=== PATIENT | male | born 1965 | race Caucasian/White ===

== ENCOUNTER → 2017-03-21 07:47 | Day surgery (SDC) | payer BC ==
--- NOTE | 2017-03-08 08:38 | HP ---
ADMISSION HISTORY AND PHYSICAL: DATE OF ADMISSION: 03/21/17 ATTENDING SURGEON: Julio Snyder MD (dictated by LISA Mendes) CHIEF COMPLAINT: Left inguinal hernia. HISTORY OF PRESENT ILLNESS: This is a generally healthy 51-year-old male who states that he has had left inguinal hernia for at least the past 10 years. He initially was completely asymptomatic. However, in recent months, he has noted both increased size of the hernia as well as discomfort both in the groin and in the left testicle, particularly related to increased activity and/or episodes of constipation. He denies anything to suggest incarceration or strangulation. He has had nocturia x1 to 2 nightly, but no recent changes. He did undergo open repair of a right inguinal hernia as well as of undescended testicle as a child. He wondered whether there maybe some recurrence on the right side based on some mild discomfort. He was seen in the office by Dr. Snyder on 02/06/17, at which time exam confirmed the presence of a reducible left inguinal hernia, but no apparent recurrent hernia noted on the right. Dr. Snyder discussed with him the indications for repair, the risks, benefits, and alternatives including the option of no treatment. The patient understands the expected perioperative course and would like to proceed as scheduled with open repair of left inguinal hernia with mesh. PAST MEDICAL HISTORY: Unremarkable for any chronic or active medical problems. PAST SURGICAL HISTORY: His only previous surgeries are the right inguinal herniorrhaphy and undescended testicle as a child, dental extractions, and vasectomy. CURRENT MEDICATIONS: None. ALLERGIES: Drug allergies, none. FAMILY HISTORY: Negative for anesthesia problems, bleeding, or clotting disorders. SOCIAL HISTORY: The patient is . 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 He denies use of tobacco. He drinks approximately 1 drink per week. REVIEW OF SYSTEMS: General: No recent constitutional symptoms or acute illnesses. Cardiovascular: No chest pain, palpitations, history of hypertension , IN, or heart murmur. Respiratory: No history of asthma, chronic cough, or shortness of breath. GI: No problems reported. I did not ask him about screening for colorectal cancer, but no lower GI symptoms reported. : No additions to the above. Endocrine: No diabetes or thyroid dysfunction. PHYSICAL EXAMINATION GENERAL: A well-nourished, well-developed male, in no acute distress. VITAL SIGNS: Height 71 inches, weight 175 pounds. Blood pressure 112/64, pulse 72, and respirations 16. HEENT: Pupils equal, round, and reactive. EOMs intact. No conjunctival pallor. Oropharynx, teeth in good repair. No intraoral lesions. NECK: No lymphadenopathy, thyromegaly, or masses. LUNGS: Clear to auscultation. No rales or wheezes. HEART: Regular rate and rhythm. No murmur noted. ABDOMEN: Soft, nontender to palpation. No palpable masses or organomegaly with the exception of the aforementioned left groin bulge consistent with left inguinal hernia. EXTREMITIES: No edema. GENITALIA EXAM: Not repeated. RECTAL: Not done. BACK: No spinous process or CVA tenderness. NEUROLOGIC: Grossly intact. SKIN: Warm and dry. No suspicious rashes or lesions. IMPRESSION: Left inguinal hernia. PLAN: Open repair of left inguinal hernia with mesh. LISA KWON CC: Stevan Arcos MD; Family Medicine * [id number]/[facility] #: [id number] [facility] SYSTEMJen[facility]
[~2017-03-21 07:47] MED LIST: Atracurium* 10 MG/ML 10 ML VIAL ONE; Buffered Lidocaine 1% SYRIN* 3 ML/SYR SYRINGE INTRADERM ONE; DiMENhydriNATE IV* 50 MG/ML VIAL IV PUSH PRN; Lidocaine 2% PF * 5 ML VIAL ONE; Midazolam* 1 MG/ML 5 ML VIAL (5 MG) ONE; Ondansetron INJ* 2 MG/ML VIAL IV PRN; Ondansetron INJ* 2 MG/ML VIAL ONE; Propofol* 10 MG/ML 20 ML BTL IV PUSH ONE; Succinylcholine* 20 MG/ML 10 ML VIAL ONE; ceFAZolin 2 GM PREMIX(*) 2 GM/50 ML BAG IVPB ONE; celeCOXIB CAP* 100 MG ONE; celeCOXIB CAP* 200 MG PO ONE; fentaNYL* 50 MCG/ML 2 ML VIAL (100 MCG VIAL) IV PRN; fentaNYL* 50 MCG/ML 2 ML VIAL (100 MCG VIAL) ONE
--- NOTE | 2017-03-21 12:38 | SURGPN ---
Brief Operative Note - Surgery Procedures: PREOP DX: LEFT INGUINAL HERNIA (PRIMARY); RIGHT GROIN PAIN POSTOP DX: LEFT INGUINAL HERNIA RECURRENT; NO RIH PROC: ATTEMPTED OPEN LIHR; LAPAROSCOPIC LIHR WITH MESH AND PERITONEOSCOPY. SURG: MECENAS ASSIST: NONE ANES: GET; BYLEBYL EBL: MIN IVF: CRYSTALLOID SPEC: NONE DRAIN: NONE COMPL: NONE COND: STABLE FINDINGS: SCARRING IN THE L INGUINAL REGION C/W RECURRENT LIH; NO EVIDENCE OF RIH; INTRAPERITONEAL ADHESIONS OF SB TO BILATERAL INGUINAL REGIONS, C/W PRIOR SURGERY.
[2017-03-21 13:56] VITALS: BP 131/88
--- NOTE | 2017-03-22 04:29 | OP ---
DATE OF OPERATION: 03/21/17 [facility] DATE OF : 65 SURGEON: Julio Snyder MD PARKING METER INSTALLER: None. ANESTHESIOLOGIST: Dr. Cuevas. ANESTHESIA: General endotracheal. PRE-OP DIAGNOSIS: Left inguinal hernia and right groin pain. POST-OP DIAGNOSIS: Recurrent left inguinal hernia and right groin pain. OPERATIVE PROCEDURE: Attempted open repair of left inguinal hernia and laparoscopic preperitoneal left inguinal hernia repair with mesh and peritoneoscopy. ESTIMATED BLOOD LOSS: Minimal. IV FLUIDS: Crystalloid. SPECIMEN: None. DRAINS: None. COMPLICATIONS: None. COUNTS: The instrument, needle, and sponge counts were correct. DESCRIPTION OF PROCEDURE: The patient was brought to the operating room, placed on table supine. Sequential compression devices were placed on both lower extremities and he was administered intravenous sedation. His abdomen was prepped and draped in the usual sterile fashion and then time-out was performed. He had received appropriate intravenous antibiotics. The initial incision was an oblique left groin incision after infiltrating a local anesthetic and there was significant scarring of the subcutaneous tissues and it appeared that the patient indeed had previous left inguinal hernia repair done in an open fashion. It was difficult to identify the plane. Therefore, rather than persist in attempting an open repair of this recurrent inguinal hernia, it was decided to close the incision and approach this laparoscopically. Hemostasis of the groin was assured and then 3-0 Polysorb was used to close the subcutaneous tissues and skin was closed with 4-0 Monocryl in a running subcuticular fashion and Steri-Strips applied. The patient had a Dey catheter placed and then was reprepped and draped and he was administered general anesthesia. An infraumbilical incision was created after infiltrating local anesthetic and the subcutaneous tissues were divided with cautery. The anterior rectus abdominis fascia was identified to the left of the midline and incised transversely and the underlying muscles retracted laterally as the preperitoneal balloon dissector was positioned down to the level of the pubic symphysis. Under direct visualization, the balloon dissector was insufflated and then it was removed and replaced with a 12-mm blunt port and carbon dioxide was insufflated into the preperitoneal space to a pressure of 10 mmHg. Two 5 mm trocars were placed in the lower midline and then the dissection proceeded from the midline laterally towards the left side identifying the pubic symphysis, pubic tubercle, Tushar ligament, and inferior epigastric vessels. A small branch of the inferior epigastric vessel was clipped and divided. The dissection proceeded laterally to the anterior superior iliac spine. The patient was noted to have weakness in the Hesselbach triangle as well as in the area of the deep ring. The peritoneal sac was dissected back completely and space was created to accommodate the Bard 3DMax large size patch. This was placed into the preperitoneal space and then sewn to cover the direct and indirect femoral spaces and was secured to the pubic tubercle and the Tushar ligament with a CapSure tacker. The attention was then turned to the right side as the patient had complaints of right groin pain as well. The dissection proceeded on the right side and there was no obvious hernia noted. During the dissection of the peritoneum, a rent was inadvertently made in the peritoneum and this was closed with the endoscopic clip sex offender treatment professional. Rather than persistent further dissection at this point, it was decided to perform a peritoneoscopy to view the hernial orifices from the peritoneal cavity. First the mesh on the left was observed to be in good position while the preperitoneal space was desufflated. The 12 mm port was then removed and the peritoneal cavity was entered. The 12 port was placed within the peritoneal cavity and the carbon dioxide was insufflated to a pressure 15 mmHg. The laparoscope was then introduced and there were noted to be small bowel adhesions in both the right and left groin; however, there was no evidence of inguinal hernia on the right side and there was no opening in the peritoneum on the right side or the left side. At this point, carbon dioxide was released in the peritoneal cavity and this umbilical wound was closed in 2 layers with 0 Polysorb to approximate the posterior and anterior rectus fascia. After this, the skin incisions were closed with 4-0 Monocryl and Steri-Strips were applied. The patient tolerated this procedure well. He was awakened and transferred to the recovery room in a stable condition. CC: Nicole Hatfield MD* [id number]/[facility] #: [id number] AMANDA
== END | disposition home or self-care (01) ==
LOC: OR 07:47
PROVIDERS: ATTEND Surgery
DX: K40.91 Unilateral inguinal hernia, without obstruction or gangrene, recurrent (principal); R10.31 Right lower quadrant pain
CPT/HCPCS: A9270-GY; C1776; C1781; J0330; J0690; J2250; J2405; J2704; J3010

== ENCOUNTER 2018-12-06 09:34 | Emergency (ER) | payer BC ==
--- NOTE | 2018-12-06 10:10 | ED ---
HPI Cardiac - HPI Summary HPI Summary: Patient is a 53 y/o M presenting to ED with complaints of chest pain and palpitations. He reports three episodes of palpitations and chest pain in total , noting first occurrence on 11/20/18. Patient reports that he awakes with palpitations, states that episodes last around a minute. He claims that he is awoken either by stress or phone alarm. After the palpitations, he states that he would experience a chest tightness, noting that his chest felt "sore, achy, and strained". No feelings of near syncope, no SOB. No chest pain with exertion , minimal alc usage, does not smoke cigarettes, drinks ~3 cups of coffee daily. He states he "tries to" drink water frequently and notes some difficulty with sleep. No Hx of HTN, arrhythmias, FMHx of cardiac issues in father, maternal grandfather had RI. On triage, pain is denied, nothing is noted to aggravate/ alleviate Sx. Home medications, allergies, and nurse's note are reviewed. - History of Current Complaint Chief Complaint: EDDysrhythmPalp Stated Complaint: HEART PALPATATIONS Time Seen by Provider: 12/06/18 10:01 Hx Obtained From: Patient Onset/Duration: Started Weeks Ago - onset 11/20/18, Resolved Timing: Intermittent, Lasting Minutes - palpitations, Lasting Days - chest pain 1-2 days Current Severity: None Pain Intensity: 0 Pain Scale Used: 0-10 Numeric - 0/10 Aggravating Factor(s): Nothing Alleviating Factor(s): Nothing Associated Signs and Symptoms: Positive: Chest Pain - tightness, Palpitations, Other: - no chest pain with exertion. Negative: Shortness of Breath, Syncope - Allergy/Home Medications Allergies/Adverse Reactions: Allergies Allergy/AdvReac Type Severity Reaction Status Date / Time No Known Allergies Allergy Verified 12/06/18 09:40 PMH/Surg Hx/FS Hx/Imm Hx Endocrine/Hematology History: Denies: Hx Diabetes Cardiovascular History: Denies: Hx Hypertension, Hx Pacemaker/ICD History: Reports: Hx Kidney Stones - HX OF IN THE PAST Denies: Hx Renal Disease Sensory History: Reports: Hx Contacts or Glasses - GLASSES Denies: Hx Hearing Aid Opthamlomology History: Reports: Hx Contacts or Glasses - GLASSES Neurological History: Denies: Other Neuro Impairments/Disorders Psychiatric History: Denies: Hx Panic Disorder - Surgical History Surgery Procedure, Year, and Place: AGE 6- HERNIA REPAIR-STRANGULATED. SURGERY FOR UNDESCENDED TESTICLE Hx Anesthesia Reactions: No Infectious Disease History: No Infectious Disease History: Denies: Traveled Outside the [place] in Last 30 Days - Family History Known Family History: Positive: Cardiac Disease - Social History Alcohol Use: Occasionally Substance Use Type: Reports: None Smoking Status (MU): Never Smoked Tobacco Review of Systems Positive: Palpitations, Chest Pain Negative: Shortness Of Breath Negative: Syncope All Other Systems Reviewed And Are Negative: Yes Physical Exam - Summary Physical Exam Summary: Appearance: Well appearing, no pain distress Skin: warm, dry, reflects adequate perfusion Head/face: normal Eyes: EOMI, LISA ENT: mucous membranes moist Neck: supple, non-tender Respiratory: CTA, breath sounds present Cardiovascular: RRR, pulses symmetrical Abdomen: non-tender, soft Bowel Sounds: present Musculoskeletal: normal, strength/ROM intact Neuro: normal, sensory motor intact, A&Ox3 Triage Information Reviewed: Yes Vital Signs On Initial Exam: Initial Vitals Temp Pulse Resp BP Pulse Ox 98.2 F 93 14 144/95 99 12/06/18 09:36 12/06/18 09:36 12/06/18 09:36 12/06/18 09:36 12/06/18 09:36 Vital Signs Reviewed: Yes Diagnostics - Vital Signs Vital Signs Temp Pulse Resp BP Pulse Ox 12/06/18 09:36 98.2 F 93 14 144/95 99 - Laboratory Result Diagrams: 12/06/18 10:30 12/06/18 10:30 Lab Statement: Any lab studies that have been ordered have been reviewed, and results considered in the medical decision making process. - Radiology CXR Radiology Interpretation Completed By: Radiologist Summary of Radiographic Findings: IMPRESSION: NO EVIDENCE FOR ACUTE DISEASE. THIS REPORT WAS REVIEWED BY ED PHYSICIAN. - EKG 0943 Cardiac Rate: NL - rate of 81 BPM EKG Rhythm: Sinus Rhythm ST Segment: Normal Summary of EKG Findings: EKG showed sinus rhythm with rate of 81 BPM, normal axis, normal intervals, and normal ST. Disposition - Course Course Of Treatment: Nurse's notes reviewed. Patient with intermittent anxious feeling and hard beating heart on awakening 3 separate times. No arrhythmias witnessed here on either EKG or monitoring. Laboratory testing negative. Patient is of very healthy athletic individual. Follow up with primary care physician for event/Holter monitor. - Differential Dx - Cardiopulmonary Differential Diagnoses - Cardiopulmonary: Other - Anxiety, SVT, PVCs, A. fib, VT - Diagnoses Provider Diagnoses: Palpitations Discharge - Sign-Out/Discharge Documenting (check all that apply): Patient Departure - discharge - Discharge Plan Condition: Improved Disposition: HOME Patient Education Materials: Heart Palpitations (ED) Referrals: Nicole Hatfield MD [Medical Doctor] - Additional Instructions: Call your doctor now to schedule a prompt follow-up appointment. You may need to be scheduled for a Holter monitor or event monitor. Return with chest pain, continued palpitations, difficulty breathing, worse, new symptoms or other concerns. Take a daily baby aspirin. - Billing Disposition and Condition Condition: IMPROVED Disposition: Home - Attestation Statements Document Initiated by Henrique: Yes Documenting Scribe: BEBETO REA Provider For Whom Henrique is Documenting (Include Credential): MITCH MONDRAGON MD Scribe Attestation: I, BEBETO REA , scribed for MITCH MONDRAGON MD on 12/06/18 at 1439. Scribe Documentation Reviewed: Yes Provider Attestation: The documentation as recorded by the BEBETO [email or web address] accurately reflects the service I personally performed and the decisions made by me, MITCH MONDRAGON MD Status of Scribe Document: Viewed
[2018-12-06] MEDS ORDERED: NS 0.9% 1000 ML* 1,000 ML IV ONE (10:21)
[2018-12-06 10:38] LABS: ABS Basophils 0 10^3/ul (0-0.2); ABS Eosinophils 0.1 10^3/ul (0-0.6); ABS Lymphocytes 1.2 10^3/ul (1.0-4.8); ABS Monocytes 0.4 10^3/ul (0-0.8); ABS Neutrophils 2.5 10^3/ul (1.5-7.7); ABS Nucleated RBC 0 10^3/ul; Eosinophil % 2.2 %; Hematocrit 45 % (42-52); Hemoglobin 15.7 g/dl (14.0-18.0); Lymphocyte % 27.4 %; Mean Corpuscular HGB Conc 35 g/dl (31-36); Mean Corpuscular Hemoglobin 33 pg (27-31); Mean Corpuscular Volume 94 fL (80-94); Mean Platelet Volume 8.9 fL (7.4-10.4); Nucleated Red Blood Cells % 0; Platelet Count 232 10^3/ul (150-450); Red Blood Count 4.83 10^6/ul (4.00-5.40); Red Cell Distribution Width 13 % (10.5-15); White Blood Count 4.3 10^3/ul (3.5-10.8)
[2018-12-06 10:46] LABS: INR 0.98 (0.77-1.02)
[2018-12-06 10:57] LABS: Albumin 4.3 g/dL (3.2-5.2); Albumin/Globulin Ratio 1.6 (1-3); BUN/Creatinine Ratio 13.7 (8-20); Calcium 9.6 mg/dL (8.6-10.3); EGFR Non-African American 112.4 (>60); Globulin 2.7 g/dL (2-4); Magnesium 2.2 mg/dL (1.9-2.7); Phosphorus 2.1 mg/dL (2.5-5.0); Potassium 3.9 mmol/L (3.5-5.0); Total Bilirubin 0.7 mg/dL (0.2-1.0)
[2018-12-06 11:36] LABS: TSH (Thyroid Stimulating Horm) 2.74 mcIU/mL (0.34-5.60)
[2018-12-06 11:48] VITALS: BP 132/81
== END 2018-12-06 11:46 | disposition home or self-care (01) ==
LOC: ED 09:34
DX: R00.2 Palpitations (principal); R07.9 Chest pain, unspecified
CPT/HCPCS: 36415; 71045; 80053; 83605; 83735; 84100; 84443; 84484; 85025; 85610; 93005; 99283